=== PATIENT | male | born 1995 | race Caucasian/White ===

== ENCOUNTER 2019-09-12 12:50 | Emergency (ER) | payer OTHER, MEDICAID, SELFPAY ==
[2019-09-12 13:01] VITALS: BP 124/64; PULSE 56; RESP 16; TEMP 36.9; BMI 27.5
--- NOTE | 2019-09-12 13:03 | ED_ITS ---
HPI - Headache General: Chief Complaint: Headache Stated Complaint: head pain when standing Time Seen by Provider: 09/12/19 13:02 History of Present Illness: HPI Narrative: Patient is a 24-year-old male comes into the ED with a headache when he stands up. Patient has a past medical history : Cervical neck injury at work. He had a myelogram done on Tuesday to evaluate some of his neck pain. Patient says after the myelogram he started having these severe headaches when he stands up. He contacted a provider who performed a myelogram may told him to come to the eating it checked out because he shouldn't still be having these kinds of headaches over 48 hours post myelogram.The headache significantly reduces in intensity when he's laying flat. When standing up patient says he feels that he has pressure in the back of his head and top of his head. The headache is very painful when standing. Patient has some chronic numbness and tingling down the upper extremities that has been occurring since neck injury and is not gotten worse or change since myelogram. He denies any neurological symptoms during the headache, such as vision changes, weakness Or loss of sensation to extremities. Denies any chest pain, shortness of breath,Ear pain, sore throat, nasal congestion, nausea, vomiting, abdominal pain, dysuria, hematuria, diarrhea, constipation, blood in the stool, fever, swelling in legs. MD elicited complaint: headache Location: occipital Severity: severe Quality & Timing: pressure Exacerbating factors: sitting/standing Relieving factors: rest (laying down) Review of Systems General: Reports: 10 or more systems reviewed and unremarkable except in HPI and below PFSH ED PFSH: Statuses (acute, chronic, etc) shown below reflect problem list status as previously entered and may not be historically accurate Social History Smoking and tobacco status: never smoked Physical Exam Const: COMMON NORMALS: oriented x3 HENMT: COMMON NORMALS: normocephalic HEAD & SCALP: normocephalic MOUTH: oral and palatal mucosa normal THROAT: posterior oropharynx normal and uvula midline Neck/C-Spine: COMMON NORMALS: supple GENERAL: Yes normal visual inspection Resp: COMMON NORMALS: normal respiratory effort, no retractions, no use of accessory muscles and clear to auscultation bilaterally AUSCULTATION: clear to auscultation bilaterally Cardio: COMMON NORMALS: regular rate, regular rhythm, S1 normal heart sound, S2 normal heart sound, no gallops, no clicks, no murmurs and peripheral pulses 2+ throughout RATE: regular rate RHYTHM: regular rhythm HEART SOUNDS: S1 normal and S2 normal PERIPHERAL PULSES: pulses 2+ throughout GI: COMMON NORMALS: normal to inspection, nondistended, normoactive bowel sounds, soft to palpation, non-tender and no masses PALPATION: Yes soft : COMMON NORMALS: Yes no CVA tenderness BLADDER/KIDNEY EXAM: Yes no CVA tenderness Back/Pelvis: COMMON NORMALS: no CVA tenderness Neuro: COMMON NORMALS: oriented x3, CN's II-XII intact bilaterally, moves all extremities, no focal motor deficits and no sensory deficits noted CRANIAL NERVES: Yes CN normal except as noted and Yes pupillary reactivity/size COORDINATION/BALANCE: [id number]-[id number] test normal and [id number]-[id number] test normal SPEECH: speech normal SENSORY EXAM: Yes extremities MOTOR EXAM: strength 5/5 throughout COORDINATION: qpupid-od-flir test normal and lpma-jr-[id number] test normal Course ED course: Anesthesiologist was contacted about patient case. Spinal patch procedure was scheduled for tomorrow (09/13/19) and 7 AM. Patient should report to [facility] outpatient [place] before 7am. Vital Signs: Vital signs: Vital Signs Temperature 98.4 F 09/12/19 13:01 Pulse Rate 75 09/12/19 16:40 Respiratory Rate 16 09/12/19 16:40 Blood Pressure 147/65 09/12/19 16:40 Pulse Oximetry 96 09/12/19 16:40 MDM - Headache MDM Narrative: Medical decision making narrative: Patient is a 24-year-old male who comes in to the ED with a headache when he stands up and it goes away when he is laying down. His past medical history significant for cervical neck injury at work which was being evaluated by a myelogram performed on Tuesday (09/10/19). Headache developed right after procedure and continued. Patient called the neurosurgeon who performed myelogram and told him about his symptoms and doctor was worried that he could potentially have a spinal leak and should not be having this type of headache now. He told patient to go to ED for evaluation. CT of the head was performed in the ED and it was normal. Anesthesiologist on-call was contacted about the patient And outpatient procedure (epidural blood patch) was set up for tomorrow morning at 7 AM [facility] outpatient surgery. Patient understood and agreed with plan. Discharge Plan Discharge Patient Disposition: Home, Self-Care Clinical Impression: Headache Condition: Stable Prescriptions: No Action cyclobenzaprine 10 mg Tablet 10 mg PO BEDTIME PRN (Reason: Muscle Spasm) RF: 0 hydrocodone-acetaminophen 5-325 mg tablet 1 tab PO Q6H PRN (Reason: Pain) RF: 0 Referrals: Humberto Lawson FNP-C [Primary Care Provider] - Discharge Diet: Regular Discharge Activity: Bedrest Activity Restrictions/Additional Instructions: Go to outpatient surgery at [facility] tomorrow 7am for Spinal patch. Rest tonight and don't eat or drink anything after midnight. Take Tylenol or ibuprofen as needed for headache. Discharge Date/Time: 09/12/19 16:43 Coding Level of Care Code ED [employer]
--- NOTE | 2019-09-12 13:40 | CTR_ITS ---
PROCEDURE INFORMATION: Exam: CT Head Without Contrast Exam date and time: 09/12/2019 2:21 PM Age: 24 years old Clinical indication: Pain; Patient HX: PT had myelogram Tuesday, headache started then; Additional info: Unknown TECHNIQUE: Imaging protocol: Computed tomography of the head without contrast. Total DLP: 795.8 mGy-cm Radiation optimization: All CT scans at this facility use at least one of these dose optimization techniques: automated exposure control; mA and/or kV adjustment per patient size (includes targeted exams where dose is matched to clinical indication); or iterative reconstruction. COMPARISON: No relevant prior studies available. FINDINGS: Brain: Normal. No hemorrhage. Unremarkable white matter. No mass effect. Ventricles: Normal. No ventriculomegaly. Bones/joints: Unremarkable. No acute fracture. Sinuses: Visualized sinuses are unremarkable. No fluid levels. Mastoid air cells: Visualized mastoid air cells are well aerated. Soft tissues: Unremarkable. CT/CT head wo con* [id number] IMPRESSION: No acute intracranial abnormality. Radiation Dose CTDIVOL = (mGy): DLP = 795.8 (mGy-cm)
[2019-09-12] MEDS: sodium chloride 0.9% 1,000 ML 999 ML IV (15:11)
[2019-09-12 16:40] VITALS: BP 147/65; PULSE 75; RESP 16; O2SAT 96
== END 2019-09-12 16:43 | disposition home or self-care (01) ==
PROVIDERS: Emergency Provider Family Medicine; Family Provider Nurse Practitioner; PCP Nurse Practitioner
DX: R51 Headache (principal)
CPT/HCPCS: 70450; 96360; 99282; J7030

== ENCOUNTER 2019-09-13 12:20 | Outpatient (CLI) | payer OTHER, MEDICAID, SELFPAY ==
[2019-09-13 13:19] VITALS: BP 130/75; PULSE 58; RESP 18; TEMP 36.6; O2SAT 99; BMI 27.5
[2019-09-13 13:40] VITALS: BP 114/65; PULSE 69; RESP 18; O2SAT 99
--- NOTE | 2019-09-13 13:53 | P.ANES_ITS ---
Anesthesia Procedures Procedure/Date: 09/13/19 Epidural: Time Out Performed: Yes Consents Signed: Procedure Consent Consent: risks and benefits reviewed Lumbar Level: L3-L4 Epidural p osition: sitting Epidural procedure: sterile prep of area, 1% lidocaine to numb the area and 18 g needle Additional Comments: Pt had an LP done for a mylogram. Now has a PDPH. DARVIN was obtained at 8cm. 20 cc of blood was drain sterilely from the right arm. All 20 cc was injected in epidural without problem. Pt to lay flat for 1.5 hours and then will re-evaluate the MILES.
[2019-09-13 14:15] VITALS: BP 100/58; RESP 18; O2SAT 96
[2019-09-13 15:01] VITALS: BP 133/69; PULSE 61; RESP 18; O2SAT 96
--- NOTE | 2019-09-13 15:42 | PC.NURSE ---
Patient came into OPS at 1340 to be evaluated by anesthesia for a blood patch. Patient was seen by . Iv ordered to be started and consent signed by patient for blood patch procedure. Patient was instructed to lay flat for 90 minutes. Patient stated his headache was better and pain was tolerable at 90 min post procedure. Patient to be discharged per . Pt was instructed on signs of infection and bleeding, to keep area clean and dry for next 48 hours. Patients was present for instructions and both verbalized understanding. Phone number to OPS was provided at [place]. Pt ambulated out with .
== END 2019-09-13 12:21 | disposition home or self-care (01) ==
PROVIDERS: Family Provider Nurse Practitioner; PCP Nurse Practitioner; Visit Provider Family Medicine
DX: Z01.818 Encounter for other preprocedural examination (principal); R51 Headache

== ENCOUNTER 2019-09-19 14:53 | Outpatient (CLI) | payer OTHER, MEDICAID, SELFPAY ==
[2019-09-19 15:26] LABS: Basophils % 0.4 %; Eosinophils # 0.1 10^3/uL (0.0-0.8); Eosinophils % 2.3 %; Hematocrit 45.3 % (42.0-52.0); Hemoglobin 15.4 g/dL (11.7-16.6); Lymphocytes # 2.2 10^3/uL (0.8-4.8); Lymphocytes % 38.8 %; Mean Corpuscular Hemoglobin 28.7 pg (28.0-34.0); Mean Corpuscular Volume 84.5 fL (80-94); Mean Platelet Volume 10.8 fL (7.4-10.4); Monocytes # 0.5 10^3/uL (0.2-0.9); Monocytes % 9.1 %; Neutrophils # 2.8 10^3/uL (1.8-7.7); Neutrophils % 49.2 %; Nucleated Red Blood Cells % 0 %; Platelet Count 221 10^3/cmm (130-400); Red Blood Count 5.36 10^6/uL (4.1-5.3); Red Cell Distribution Width 11.7 % (12.1-15.1); White Blood Count 5.7 10^3/uL (4.0-10.0)
[2019-09-19 15:42] LABS: Alanine Aminotransferase 18 U/L (0-41); Albumin Level 4.8 g/dL (3.5-5.2); Alkaline Phosphatase 71 IU/L (40-130); Anion Gap 15.2 (5-19); Aspartate Amino Transferase 19 U/L (0-40); Blood Urea Nitrogen 11 mg/dL (6-20); Calcium 10.3 mg/Dl (8.6-10.0); Carbon Dioxide 29 mmol/L (22-29); Chloride 100 mmol/L (98-107); Globulin 2.2 g/dL (1.3-4.6); Glomerular Filtration Rate 66.7 mL/min (90-130); Glucose 83 mg/dL (74-109); Potassium 4.2 mmol/L (3.5-5.1); Sodium 140 mmol/L (136-145); Total Bilirubin 0.4 mg/dL (0.15-1.2)
== END 2019-09-19 14:54 | disposition home or self-care (01) ==
LOC: LAB 14:56
PROVIDERS: Family Provider Nurse Practitioner; PCP Nurse Practitioner
DX: Z01.812 Encounter for preprocedural laboratory examination (principal)
CPT/HCPCS: 80053; 85025

== ENCOUNTER → 2020-07-28 11:57 | Outpatient (BNVA) | payer OTHER, MEDICAID, SELFPAY | PROVIDERS: Family Provider Nurse Practitioner; PCP Nurse Practitioner; Visit Provider Specialist | DX: M25.512 Pain in left shoulder (principal); M54.12 Radiculopathy, cervical region; R20.0 Anesthesia of skin; R20.2 Paresthesia of skin; Z98.890 Other specified postprocedural states | CPT/HCPCS: 95886; 95910; 99202; G0463 ==

== ENCOUNTER 2022-12-14 10:10 | Outpatient (CLI) | payer BC, MEDICAID, SELFPAY ==
--- NOTE | 2022-12-14 08:45 | MR_ITS ---
WS: [id number] MRI CERVICAL SPINE NONCONTRAST TECHNIQUE: Sagittal T1, T2 and STIR imaging. Axial T2, gradient, and fiesta imaging. CLINICAL INFORMATION: M54.12 - Radiculopathy, cervical region COMPARISON: MRI FINDINGS: Images degraded by patient motion. Normal cervical alignment. Postoperative changes interbody fusion C5-C6 and C6-C7 from previous. Cord signal appears normal. Associated susceptibility artifact from hardware. C2-C3: Normal. C3-C4: Mild facet arthropathy. Mild LEFT and no significant RIGHT foraminal narrowing. Spinal canal i s patent. C4-C5: Mild disc osteophytic ridging. Spinal canal is patent. Mild LEFT greater than RIGHT bony gian inal narrowing. Mild to moderate facet arthropathy. C5-C6: Interbody fusion degrades images. Mild facet arthropathy. Spinal canal and foramen appear haider nt. C6-C7: Interbody fusion degrades images. Mild facet arthropathy. Spinal canal and foramen appear haider nt. C7-T1: Normal. Visualized brain stem structures: Normal. Prevertebral soft tissues: Normal.
--- NOTE | 2022-12-15 | MR_ITS ---
NOTE: Report was unsigned for reason: Order was edited. Original Signature date and time was: Dictated By: Kenny Doss MD Signed By: Kenny Doss MD Signed Date/Time: 12/16/22 1242 WS: [id number] MRI CERVICAL SPINE NONCONTRAST TECHNIQUE: Sagittal T1, T2 and STIR imaging. Axial T2, gradient, and fiesta imaging. CLINICAL INFORMATION: M54.12 - Radiculopathy, cervical region COMPARISON: MRI 5 FINDINGS: Images degraded by patient motion. Normal cervical alignment. Postoperative changes interbody fusion C5-C6 and C6- C7 from previous. Cord signal appears normal. Associated susceptibility artifact from hardware. C2-C3: Normal. C3-C4: Mild facet arthropathy. Mild LEFT and no significant RIGHT foraminal narrowing. Spinal canal is patent. C4-C5: Mild disc osteophytic ridging. Spinal canal is patent. Mild LEFT greater than RIGHT bony foraminal narrowing. Mild to moderate facet arthropathy. C5-C6: Interbody fusion degrades images. Mild facet arthropathy. Spinal canal and foramen appear patent. C6-C7: Interbody fusion degrades images. Mild facet arthropathy. Spinal canal and foramen appear patent. C7-T1: Normal. Visualized brain stem structures: Normal. Prevertebral soft tissues: Normal. [facility] con[facility] [id number] IMPRESSION: Some images degraded by patient motion and susceptibility artifact from hardware 1. Postoperative changes interbody fusion C5-C6 and C6-C7 2. No significant central canal stenosis. 3. Mild bony foraminal narrowing at bilateral C4-C5 with mild/moderate facet a rthropathy. Foraminal narrowing worse in the LEFT. 4. Spinal canal and foramen appear patent at the fusion levels with mild to mo derate facet arthropathy. 5. No other suspicious findings.
== END 2022-12-14 10:11 | disposition home or self-care (01) ==
LOC: RAD 10:15
PROVIDERS: PCP Nurse Practitioner; Visit Provider Family Medicine
DX: M54.12 Radiculopathy, cervical region (principal); Z98.1 Arthrodesis status; M48.02 Spinal stenosis, cervical region; M47.812 Spondylosis without myelopathy or radiculopathy, cervical region
CPT/HCPCS: 72141; 72142